=== PATIENT | female | born 1945 | race Caucasian/White ===

== ENCOUNTER → 2018-05-23 09:27 | Outpatient (CLI) | payer MEDICARE, SELFPAY ==
--- NOTE | 2018-05-23 09:32 | BI_ITS ---
MAMMOGRAPHY - BILATERAL SCREENING REASON FOR EXAM: Female, 72 years old. Routine annual screening examination. PERTINENT HISTORY: Aunt with breast cancer. TECHNIQUE: Digital bilateral breast philip (3D mammographic acquisition) in the CC and MLO projections. 2-D mediolateral oblique (MLO) and craniocaudad (CC) views of both breasts were obtained. CAD: Full Field Digital Mammography with Computer Added Detection was performed. COMPARISON: Comparison is made with prior study May 26, 2017 and April 06, 2016. FINDINGS: Breast Composition: The breasts are heterogeneously dense, which may obscure small masses. There are no dominant masses or suspicious calcifications. Stable small benign-appearing bilateral axillary lymph nodes. No other significant abnormalities are identified. There has been no significant change since the prior study. BI/SCREENING MAMM (CAD), BILAT IMPRESSION: Stable bilateral screening mammogram. Yearly follow-up mammogram recommended. (A) ASSESSMENT CATEGORY: BIRADS Category 2: Benign. A letter regarding these results will be sent to the patient by the facility within 30 days. Approximately 10% of breast cancers are not detected by mammography. A normal mammogram should not delay biopsy of a clinically suspicious abnormality. [id number] Electronically Signed: Curtis Keenan MD at 10:47 EST Tel [phone], Service support ,
[2018-05-23 14:42] LABS: Anion Gap 9 (5-15); BUN 16 mg/dL (7-18); BUN/Creat Ratio 19.3 RATIO (10-20); Calcium,Total 9.5 mg/dL (8.5-10.1); Chloride 105 mmol/L (98-107); Cholesterol 148 mg/dL (200); Creatinine, Serum 0.83 mg/dL (0.55-1.02); EST Glomerular Filtration Rate 72 mL/min (>60); Est Glom Filt Rate - Afr Amer 87 mL/min (>60); Glucose 90 mg/dL (74-106); High Density Lipoprotein 66 mg/dL; Potassium 3.5 mmol/L (3.5-5.1); Sodium Level 144 mmol/L (136-145); Thyroid Stim Hormone (TSH) 0.38 uIU/mL (0.358-3.74); Triglycerides 109 mg/dL; Very Low Density Lipoprotein 22 mg/dL (5-40)
--- OUTSIDE RECORDS SUMMARY | 2018-07-09 08:39 | XMS RPT_ITS | Clinical Summary ---
:1945 Author Organization [facility], [facility] Address [address] [place] [id number] Phone Care Team Providers Name Role Phone Amparo SAVAGE, Nichole Angelo Unavailable Conditions or Problems Problem Name Problem Onset Status Entry Provider Comment Standard Annotate Code Date Date Description Influenza [id number] Active Nichole Angelo Medication vaccination (SNOMED CT) / Amparo SAVAGE given given Medications No information available. Medications Administered No information available. Allergies, Adverse Reactions, Alerts No information available. Results No information available. Plan of Care Type Date Detail Appointment 09:00 AM [facility], [address], [place], [address], Procedures Code Procedure Name Date Entry Date [id number]-33760 Fluad Intramuscular Suspension Prefilled Syringe 0.5 ML Vital Signs Date Name Value Unit Description Body Temperature 98.2 [degF] temperature E&M
--- OUTSIDE RECORDS SUMMARY | 2018-07-09 08:39 | XMS RPT_ITS ---
:1945 Author Organization [facility] Care Team Providers Name Role Phone EYAL TOBAR (OD) Attending Unavailable MEET JAVED II Attending Unavailable JONI CEDENO Attending Unavailable EYAL TOBAR (OD) Referring Unavailable JONI CEDENO Attending Unavailable EYAL TOBAR (OD) Referring Unavailable Edvin Leach Attending Unavailable Edvin Leach Primary Care Unavailable Edvin Leach Referring Unavailable PROBLEMS PROBLEMS DATE TYPE CONDITION / CODE ATTENDING STATUS SOURCE 05/23/2018 Unknown Z12.31 - Edvin Leach Active [place] Encounter for [facility] mammogram for Repository malignant neoplasm of breast / Z12.31(ICD-10) PROCEDURES PROCEDURES No Procedure Records FoundRESULTS RESULTS PROGRESS Observed: 06/21/2018 Status: COMPLETED Source: [place] 4:17 PM [facility] REPOSITORY HNO ID: [id number] Author: Eyal Tobar Service: (none) Author Type: LAST PUTTER AWAY Type: Progress Notes Filed: 06/21/2018 4:18 PM Note Text: ASSESSMENT/PLAN: 1. Posterior vitreous detachment of both eyes - ICD9: 379.21, ICD10: H43.813 (primary diagnosis) Please call the office ([phone]) immediately if you notice more flashes of light, a sudden increase in floaters, or a sudden change in vision. 2. Vitreous floaters of both eyes - ICD9: 379.24, ICD10: H43.393 Patient was given both written and verbal information on flashes and floaters. Patient was instructed to call the office immediately upon noticing flashes of light, increase in floaters, or changes in vision. 3. Dry eye syndrome of both eyes - ICD9: 375.15, ICD10: H04.123 Refresh Optive Artificial tears, 1 drop, three times a day, Both eyes. 4. Combined form of age-related cataract, both eyes - ICD9: 366.19, ICD10: H25.813 Not visually significant / Observe Eyal Davionyun, OD I have confirmed and edited as necessary the relevant ophthalmic history, review of systems, surgical history, and ophthalmological examination findings as obtained by the ophthalmic technical staff. I have seen and examined Melyssa Beaulieu. I have discussed the examination findings, diagnosis, and treatment options with Melyssa Beaulieu and/or her family. I have also reviewed and agree with the assessment and plan as stated above and agree with all its relevant components. I gave the patient the opportunity to ask questions about the findings, diagnosis, and treatment options. BASIC METABOLIC Collected: 05/23/2018 Status: F Source: [place] PROFILE (BMP) 12:42 PM [facility] REPOSITORY Order Comment: PT IS NOT FASTING TYPE CODE TESTS RESULT OUT OF RANGE REFERENCE UNITS LAB L501.0100 74-106 mg/dL Normal GLU 90 Result Comment: Please note revised GLUCOSE reference range effective 2017. LAB L501.1000 7-18 mg/dL Normal BUN 16 LAB L501.1100 0.55-1.02 mg/dL Normal CREAT,SERUM 0.83 Result Comment: The validity of the calculated GFR AND GFRAA in patients over 70 years has not been determined. Clinical correlation is essential. LAB L501.1110 >60 mL/min Normal EST GFR 72 Result Comment: Non- GFR Calc LAB L501.1115 >60 mL/min Normal EST GFR - AA 87 Result Comment: GFR Calc LAB L501.1300 10-20 RATIO Normal BUN/CRE 19.3 LAB L501.2200 8.5-10.1 mg/dL CA Normal 9.5 LAB L501.5300 136-145 mmol/L NA Normal 144 LAB L501.5600 3.5-5.1 mmol/L K Normal 3.5 LAB L501.5900 98-107 mmol/L CL Normal 105 LAB L501.6100 21.0-32.0 mmol/L Normal CO2 30.0 LAB L501.6200 5-15 Normal GAP 9 Performed By: #### L500.2500 #### [facility] [address] [place], [address] LIPID PROFILE Collected: 05/23/2018 Status: F Source: [place] 12:42 PM [facility] REPOSITORY Order Comment: PT IS NOT FASTING TYPE CODE TESTS RESULT OUT OF RANGE REFERENCE UNITS LAB L501.4900 200 mg/dL Normal CHOL 148 Result Comment: <200 mg/dL Desirable 200-240 mg/dL Borderline >240 mg/dL High Risk LAB L501.5000 mg/dL Normal TRIG 109 Result Comment: The drugs N-Acetylcysteine and Metamizole may falsely depress this assay. Serum Triglycerides Reference Interval Normal <150 mg/dL Borderline high 150 - 199 mg/dL High 200 - 499 mg/dL Very High > or = 500 mg/dL LAB L501.6400 mg/dL Normal HDL 66 Result Comment: The drugs N-Acetylcysteine and Metamizole may falsely depress this assay. Reference Range HDL <40 mg/dL Low HDL Cholesterol HDL >or= 60 mg/dL High HDL Cholesterol LAB L501.6500 0-130 mg/dL Normal LDL 60 LAB L501.6600 5-40 mg/dL Normal VLDL 22 Performed By: #### L500.4100 #### [facility] [address] [place] [place], [address] THYROID STIM HORMONE Collected: 05/23/2018 Status: F Source: [place] (TSH) 12:42 PM [facility] REPOSITORY Order Comment: PT IS NOT FASTING TYPE CODE TESTS RESULT OUT OF RANGE REFERENCE UNITS LAB L501.9520 0.358-3.74 uIU/mL Normal TSH 0.38 Performed By: #### L501.9520 #### [facility] [address] [place], [address] VITAMIN D,25 HYDROXY Collected: 05/23/2018 Status: F Source: [place] 12:42 PM [facility] REPOSITORY TYPE CODE TESTS RESULT OUT OF RANGE REFERENCE UNITS LAB L506.1000 29.95-100.01 ng/mL Normal Vitamin D 31.0 25-OH Result Comment: Vitamin D 25(OH) Status Range Deficiency <20 ng/mL (50nmol/L) Insuffciency 20 - 30 ng/mL (50 - 75 nmol/L) Sufficiency 30 - 100 ng/mL (75 - 250 nmol/L) Toxicity >100 ng/mL (>250 nmol/L) Performed By: #### L506.1000 #### [facility] [address] [place], [address] SCREENING MAMM (CAD), Observed: 05/23/2018 Status: F Source: [place] BIL[place] 9:32 AM [facility] REPOSITORY [facility] Imaging Services [address] [place] [address] SCREENING MAMM (CAD), BILAT MR#: [id number] Acct: [id number] Name: MELYSSA BEAULIEU Rep #: [id number] : 1945 F 72 From: Curtis Keenan MD PCP: Edvin Leach MD Status: REG CLI Study: SCREENING MAMM (CAD), BILAT Date of Exam: 05/23/18 Exam# [id number] Ordering Dr: Edvin Leach MD MAMMOGRAPHY - BILATERAL SCREENING REASON FOR EXAM: Female, 72 years old. Routine annual screening examination. PERTINENT HISTORY: Aunt with breast cancer. TECHNIQUE: Digital bilateral breast philip (3D mammographic acquisition) in the CC and MLO projections. 2-D mediolateral oblique (MLO) and craniocaudad (CC) views of both breasts were obtained. CAD: Full Field Digital Mammography with Computer Added Detection was performed. COMPARISON: Comparison is made with prior study May 26, 2017 and April 06, 2016. FINDINGS: Breast Composition: The breasts are heterogeneously dense, which may obscure small masses. There are no dominant masses or suspicious calcifications. Stable small benign-appearing bilateral axillary lymph nodes. No other significant abnormalities are identified. There has been no significant change since the prior study. BI/SCREENING MAMM (CAD), BILAT IMPRESSION: Stable bilateral screening mammogram. Yearly follow-up mammogram recommended. (A) ASSESSMENT CATEGORY: BIRADS Category 2: Benign. A letter regarding these results will be sent to the patient by the facility within 30 days. Approximately 10% of breast cancers are not detected by mammography. A normal mammogram should not delay biopsy of a clinically suspicious abnormality. [id number] Electronically Signed: Curtis Keenan MD at 10:47 EST Tel [phone], Service support , CC: Edvin Leach MD Buggyman: Signed PROGRESS Observed: 12/27/2017 Status: COMPLETED Source: [place] 10:09 AM [facility] REPOSITORY HNO ID: [id number] Author: Meet Javed II Service: (none) Author Type: LAST PUTTER AWAY Type: Progress Notes Filed: 12/27/2017 10:11 AM Note Text: ASSESSMENT/PLAN: 1. Simple chronic conjunctivitis of both eyes - ICD9: 372.11, ICD10: H10.423 (primary diagnosis) Recommend use of Lumify 1 gt both eyes as needed for relief of redness. Continue use of moisture drops. 2. Combined form of age-related cataract, both eyes - ICD9: 366.19, ICD10: H25.813 Cataracts advancing slowly and causing myopic shift in glasses both eyes. 3. Regular astigmatism, bilateral - ICD9: 367.21, ICD10: H52.223 4. Presbyopia - ICD9: 367.4, ICD10: H52.4 Demonstrated shift in power to patient. Update glasses to maximize visual performance. I have confirmed and edited as necessary the relevant ophthalmic history, review of systems, surgical history, and ophthalmological examination findings as obtained by the ophthalmic technical staff. I have seen and examined Melyssa Beaulieu. I have discussed the examination findings, diagnosis, and treatment options with the patient and/or the patient's family. I have also reviewed and agree with the assessment and plan as stated above and agree with all its relevant components. I gave the patient the opportunity to ask questions about the findings, diagnosis, and treatment options. Meet Javed, II, OD PROGRESS Observed: 11/02/2017 Status: COMPLETED Source: [place] 2:18 PM [facility] REPOSITORY HNO ID: [id number] Author: Joni Cedeno Service: (none) Author Type: Physician Type: Progress Notes Filed: 11/02/2017 2:20 PM Note Text: ASSESSMENT/PLAN: 1. Combined form of age-related cataract, both eyes - ICD9: 366.19, ICD10: H25.813 (primary diagnosis) Cataracts are not visually significant Patient advised to see Dr. Meet Javed for updated refraction and glasses. 2. Posterior vitreous detachment of right eye - ICD9: 379.21, ICD10: H43.811 3. Vitreous floaters of both eyes - ICD9: 379.24, ICD10: H43.393 - OCT MACULA CIRRUS OU (BOTH EYES) Patient was instructed to call the office ([phone]) immediately upon noticing flashes of light, increase in floaters, or changes in vision. Stable / Observe 4. Hypothyroidism, unspecified type - ICD9: 244.9, ICD10: E03.9 Continue to monitor with primary care physician Joni Cedeno MD I have confirmed and edited as necessary the relevant ophthalmic history, review of systems, surgical history, and ophthalmological examination findings as obtained by the ophthalmic technical staff. I have seen and examined Melyssa Beaulieu. I have discussed the examination findings, diagnosis, and treatment options with Melyssa Beaulieu and/or her family. I have also reviewed and agree with the assessment and plan as stated above and agree with all its relevant components. I gave the patient the opportunity to ask questions about the findings, diagnosis, and treatment options. ALLERGIES ALLERGIES DATE TYPE / CODE NAME / CODE REACTION SEVERITY SOURCE Drug NO KNOWN [facility] Class/21686 ALLERGIES [place] 1003(SNOMED Repository CT) ENCOUNTERS ENCOUNTERS ADMIT/DISCHARGE ACCOUNT ADMITTING ENCOUNTER LOCATION SOURCE NUMBER CLASS 06/21/2018/06/23/19 [id number] Ambulatory [address] Repository 05/23/2018 [id number] Ambulatory [facility] ing:OPBI Repository 12/27/2017/12/29/19 [id number] Ambulatory [address] Repository 11/02/2017/11/04/19 [id number] Ambulatory [address] Repository 10/26/2017 [id number] Ambulatory [facility] Repository PAYERS PAYERS ENCOUNTER GUARANTOR PAYER SUBSCRIBER SOURCE 05/23/2018 MELYSSA C Primary MELYSSA C [place] CARVER Insurance:AETPOLINA GARCIAB: [facility] Number: [id number] Hospital [id number] Repository [address], Date:9022-82-11[address] [place] [address]Jlm: [id number] IMTIAZ HOANG [address]WP: [phone] 05/23/2018 Secondary NOT GIVENUNK [place] Insurance:SELF PAY [facility] Number: Effective Repository Date:2018-04-12
== END ==
PROVIDERS: Family Provider Family Medicine; PCP Family Medicine; Referring Provider Family Medicine; Visit Provider Family Medicine
DX: Z12.31 Encounter for screening mammogram for malignant neoplasm of breast (principal); E03.9 Hypothyroidism, unspecified; E78.00 Pure hypercholesterolemia, unspecified; M85.80 Other specified disorders of bone density and structure, unspecified site
CPT/HCPCS: 36415; 77063; 77067; 80048; 80061; 82306; 84443

== ENCOUNTER → 2019-05-21 10:00 | Outpatient (CLI) | payer MEDICARE, SELFPAY ==
[2019-05-21 12:18] LABS: Absolute Lymphocyte Count 1.39 X10^3/uL (0.83-4.51); Absolute Neutrophil Count 2.1 X10^3/uL (2.0-7.7); Basophil# 0.02 X10^3/uL; Basophil% 0.5 % (0-1); Eosinophil# 0.13 X10^3/uL; Eosinophils% 3.1 % (0-5); Hematocrit 41.8 % (37-47); Hemoglobin 13.5 g/dL (12.0-15.0); Lymphocyte # 1.39 X10^3/ul (4.0); Lymphocyte % 33.7 % (19-41); Mean Corp Hgb Conc 32.3 g/dL (32-36); Mean Corpuscular Hgb 31.5 pg (27.0-32.0); Mean Corpuscular Volume 97.4 fL (81-99); Mean Platelet Vol. 9.7 fl (6.2-12.0); Monocyte# 0.46 X10^3/uL; Monocyte% 11.1 % (0-10); NRBC Flagged by Analyzer 0 % (0-5); Neutrophil # 2.12 X10^3/uL (2.7-7.7); Neutrophil % 51.4 % (47-70); Platelet Count 230 K/mm3 (150-450); RBC Distribution Width CV 13.2 % (11.6-14.6); RBC Distribution Width SD 47.6 fl (35.1-43.9); Red Blood Count 4.29 M/mm3 (4.2-5.4); White Blood Count 4.1 K/mm3 (4.4-11.0)
[2019-05-21 12:41] LABS: ALB/GLOB Ratio 1.2 RATIO (0.9-2.4); AST(SGOT) 21 U/L (15-37); Alanine Aminotransfer ALT/SGPT 18 U/L (13-56); Alkaline Phosphatase 63 U/L (45-117); Anion Gap 2 (5-15); BUN 11 mg/dL (7-18); BUN/Creat Ratio 14.3 RATIO (10-20); Calcium,Total 9.3 mg/dL (8.5-10.1); Chloride 107 mmol/L (98-107); Cholesterol 160 mg/dL (200); Creatinine, Serum 0.77 mg/dL (0.55-1.02); EST Glomerular Filtration Rate 78 mL/min (>60); Est Glom Filt Rate - Afr Amer 94 mL/min (>60); Globulin 3.3 g/dL (2.2-4.2); Glucose 87 mg/dL (74-106); High Density Lipoprotein 67 mg/dL; Potassium 3.8 mmol/L (3.5-5.1); Protein, Total 7.3 g/dL (6.4-8.2); Sodium Level 141 mmol/L (136-145); Triglycerides 115 mg/dL; Very Low Density Lipoprotein 23 mg/dL (5-40)
[2019-05-21 12:48] LABS: Vitamin D,25 Hydroxy 34.9 ng/mL (29.95-100.01)
== END ==
PROVIDERS: Family Provider Family Medicine; PCP Family Medicine; Referring Provider Family Medicine; Visit Provider Family Medicine
DX: E78.00 Pure hypercholesterolemia, unspecified (principal)
CPT/HCPCS: 36415; 80053; 80061; 82306; 85025

== ENCOUNTER → 2020-05-20 11:26 | Outpatient (CLI) | payer MEDICARE, SELFPAY ==
[2020-05-20 16:18] LABS: Vitamin D,25 Hydroxy 33.4 ng/mL
[2020-05-20 16:54] LABS: ALB/GLOB Ratio 1.2 RATIO (0.9-2.4); AST(SGOT) 24 U/L (15-37); Alanine Aminotransfer ALT/SGPT 27 U/L (13-56); Albumin, Serum 4.1 g/dL (3.2-5.0); Alkaline Phosphatase 96 U/L (45-117); Anion Gap 6 (5-15); BUN 13 mg/dL (7-18); BUN/Creat Ratio 17.7 RATIO (10-20); Calcium,Total 9.4 mg/dL (8.5-10.1); Chloride 104 mmol/L (98-107); Cholesterol 146 mg/dL (200); Creatinine, Serum 0.73 mg/dL (0.55-1.02); EST Glomerular Filtration Rate 82 mL/min (>60); Est Glom Filt Rate - Afr Amer 99 mL/min (>60); Globulin 3.4 g/dL (2.2-4.2); Glucose 72 mg/dL (74-106); High Density Lipoprotein 64 mg/dL; Potassium 3.6 mmol/L (3.5-5.1); Protein, Total 7.5 g/dL (6.4-8.2); Sodium Level 139 mmol/L (136-145); Thyroid Stim Hormone (TSH) 0.13 uIU/mL (0.358-3.74); Triglycerides 110 mg/dL; Very Low Density Lipoprotein 22 mg/dL (5-40)
[2020-05-21 08:23] LABS: PTHIN 22.7 pg/mL (18.4-80.1)
== END ==
PROVIDERS: PCP Family Medicine; Referring Provider Family Medicine; Visit Provider Family Medicine
DX: E03.9 Hypothyroidism, unspecified (principal); E78.5 Hyperlipidemia, unspecified; M81.0 Age-related osteoporosis without current pathological fracture
CPT/HCPCS: 36415; 80053; 80061; 82306; 83970; 84443

== ENCOUNTER → 2020-05-27 11:47 | Outpatient (CLI) | payer MEDICARE, SELFPAY ==
[2020-05-27 15:49] LABS: T4 Free Direct 1.17 ng/dL (0.76-1.46); Thyroid Stim Hormone (TSH) 0.16 uIU/mL (0.358-3.74)
== END ==
PROVIDERS: PCP Family Medicine; Referring Provider Family Medicine; Visit Provider Family Medicine
DX: E03.9 Hypothyroidism, unspecified (principal)
CPT/HCPCS: 36415; 84439; 84443

== ENCOUNTER → 2020-08-07 13:24 | Outpatient (CLI) | payer MEDICARE, SELFPAY ==
--- NOTE | 2020-08-07 13:26 | BI_ITS ---
MAMMOGRAPHY - BILATERAL SCREENING REASON FOR EXAM: Female, 74 years old. Routine annual screening examination. PERTINENT HISTORY: Aunt with breast cancer. TECHNIQUE: Digital bilateral breast samantha (3D mammographic acquisition) in the CC and MLO projections. 2-D mediolateral oblique (MLO) and craniocaudad (CC) views of both breasts were obtained. CAD: Full Field Digital Mammography with Computer Added Detection was performed. COMPARISON: Comparison is made with prior study dated 05/23/2018 and 04/26/2017. FINDINGS: Breast Composition: The breasts are heterogeneously dense, which may obscure small masses. There are no dominant masses or suspicious calcifications. Stable benign-appearing small bilateral axillary lymph nodes. No other significant abnormalities are identified. There has been no significant change since the prior study. BI/SCRN MAMM (CAD)W/SAMANTHA BILAT IMPRESSION: Stable bilateral screening mammogram. Yearly follow-up mammogram recommended. (A) ASSESSMENT CATEGORY: BIRADS Category 2: Benign. A letter regarding these results will be sent to the patient by the facility within 30 days. Approximately 10% of breast cancers are not detected by mammography. A normal mammogram should not delay biopsy of a clinically suspicious abnormality. [id number] Electronically Signed: Curtis Keenan MD at 14:17 EST , Service support ,
--- NOTE | 2020-08-07 13:28 | BD_ITS ---
STUDY: DUAL ENERGY X-RAY ABSORPTIOMETRY / DXA REASON FOR EXAM: Female, 74 years old. CHEMICAL SPRAYER -- HX OF HRT -- TAKES SYNTHROID -- TAKES CALCIUM, MULTIVITAMIN, VITAMIN D -- TAKES PROLIA- BEEN ON x3 YRS -- DOES MODERATE AMOUNT OF EXERCISE -- FAMILY HX OF OSTEO- MOTHER -- NO VALENTE TECHNIQUE: Bone Mineral Density (BMD) measurements of lumbar spine and bilateral hips were obtained. COMPARISON: Comparison is made with prior study dated 06/28/2017. FINDINGS: Lumbar Spine (L1-L4): g/cm2 (1.088) / T-score (-0.9) / Z-score (0.8) Findings are suggestive of normal bone density with a low fracture risk. Left Femur Total: g/cm2 (0.922) / T-score (-0.7) / Z-score (1.1) Left Femoral Neck: g/cm2 (0.951) / T-score (-0.6) / Z-score (1.3) Right Femur Total: g/cm2 (0.892) / T-score (-0.9) / Z-score (0.8) Right Femoral Neck: g/cm2 (0.932) / T-score (-0.8) / Z-score (1.2) The T-Scores on the most recent prior examination were: Lumbar Spine (L1-L4): There has been improvement of bone density since the previous examination. Left Femur Total: which represents an improvement of 3.9%. Right Femur Total: which represents an improvement of 3.2%. BD/Dexa Bone Density Study IMPRESSION: The patient is considered normal as outlined below according to World Aniceto Organization (WHO) criteria with a low fracture risk. There has been improvement of bone density since the previous examination. Reference Information: The T-score is the number of standard deviations above or below the standard which is normal for young adults at their peak bone mineral density. The World Health Organization (WHO) interprets the T-scores as follows: Above -1 Normal bone density Between -1 and -2.5 Osteopenia Equal to / or below -2.5 Osteoporosis As a practical clinical guideline, osteopenia may be graded as follows: Mild -1 through -1.5 Moderate -1.6 through -2.0 Severe -2.1 through -2.4 The Z-score is the number of standard deviations above or below age-matched controls. A Z-score of less than -1.5 would be considered abnormal. References: 1. NIH Osteoporosis and Related Bone Diseases www osteo.org 2. International Society for Clinical Densitometry www iscd.org 3. National Osteoporosis Foundation www nof.org Electronically Signed: Curtis Keenan MD at 15:44 EST , Service support ,
== END ==
PROVIDERS: PCP Family Medicine; Referring Provider Nurse Practitioner Family; Visit Provider Nurse Practitioner Family
DX: Z12.31 Encounter for screening mammogram for malignant neoplasm of breast (principal); M85.80 Other specified disorders of bone density and structure, unspecified site; M81.0 Age-related osteoporosis without current pathological fracture
CPT/HCPCS: 77063; 77067; 77080

== ENCOUNTER → 2020-12-29 09:36 | Outpatient (CLI) | payer MEDICARE, SELFPAY ==
[2020-12-29 13:12] LABS: T4 Free Direct 1.07 ng/dL (0.76-1.46); Thyroid Stim Hormone (TSH) 0.61 uIU/mL (0.358-3.74)
== END ==
PROVIDERS: Nurse Practitioner Family; PCP Family Medicine; Referring Provider Family Medicine; Visit Provider Family Medicine
DX: E03.9 Hypothyroidism, unspecified (principal)
CPT/HCPCS: 36415; 84439; 84443

== ENCOUNTER 2021-07-29 08:04 | Outpatient (CLI) | payer MEDICARE, SELFPAY ==
[2021-07-29 10:31] LABS: Hematocrit 41.2 % (37-47); Hemoglobin 13.8 g/dL (12.0-15.0); Mean Corp Hgb Conc 33.5 g/dL (32-36); Mean Corpuscular Hgb 33.1 pg (27.0-32.0); Mean Corpuscular Volume 98.8 fL (81-99); Mean Platelet Vol. 9.7 fl (6.2-12.0); Platelet Count 226 K/mm3 (150-450); RBC Distribution Width CV 13.2 % (11.6-14.6); RBC Distribution Width SD 48.2 fl (35.1-43.9); Red Blood Count 4.17 M/mm3 (4.2-5.4); White Blood Count 4.1 K/mm3 (4.4-11.0)
[2021-07-29 10:45] LABS: Vitamin D,25 Hydroxy 38.5 ng/mL
[2021-07-29 10:57] LABS: ALB/GLOB Ratio 1.1 RATIO (0.9-2.4); AST(SGOT) 22 U/L (15-37); Alanine Aminotransfer ALT/SGPT 23 U/L (13-56); Alkaline Phosphatase 63 U/L (45-117); Anion Gap 5 (5-15); BUN 11 mg/dL (7-18); Calcium,Total 8.7 mg/dL (8.5-10.1); Chloride 107 mmol/L (98-107); Cholesterol 148 mg/dL (200); Creatinine, Serum 0.73 mg/dL (0.55-1.02); EST Glomerular Filtration Rate 82 mL/min (>60); Est Glom Filt Rate - Afr Amer 99 mL/min (>60); Globulin 3.5 g/dL (2.2-4.2); Glucose 88 mg/dL (74-106); High Density Lipoprotein 70 mg/dL; Potassium 3.7 mmol/L (3.5-5.1); Protein, Total 7.5 g/dL (6.4-8.2); Sodium Level 142 mmol/L (136-145); Thyroid Stim Hormone (TSH) 0.48 uIU/mL (0.358-3.74); Triglycerides 102 mg/dL; Very Low Density Lipoprotein 20 mg/dL (5-40)
== END 2021-07-29 23:59 | disposition home or self-care (01) ==
LOC: MTLAB 08:07
PROVIDERS: PCP Family Medicine; Referring Provider Registered Nurse; Visit Provider Registered Nurse
DX: E78.00 Pure hypercholesterolemia, unspecified (principal); E03.9 Hypothyroidism, unspecified; E55.9 Vitamin D deficiency, unspecified
CPT/HCPCS: 36415; 80053; 80061; 82306; 84443; 85027

== ENCOUNTER → 2022-06-22 | Outpatient (CLI) | payer MEDICARE, SELFPAY ==
--- NOTE | 2022-06-22 10:26 | BI_ITS ---
MAMMOGRAPHY - BILATERAL SCREENING REASON FOR EXAM: Female, 76 years old. Routine annual screening examination. PERTINENT HISTORY: Aunt with breast cancer. TECHNIQUE: Digital bilateral breast samantha (3D mammographic acquisition) in the CC and MLO projections. 2-D mediolateral oblique (MLO) and craniocaudad (CC) views of both breasts were obtained. CAD: Full Field Digital Mammography with Computer Added Detection was performed. COMPARISON: Comparison is made with prior study of 08/07/2020 and 05/23/2018. FINDINGS: Breast Composition: The breasts are heterogeneously dense, which may obscure small masses. There are no dominant masses or suspicious calcifications. No other significant abnormalities are identified. There has been no significant change since the prior study. BI/SCRN MAMM (CAD)W/SAMANTHA BILAT IMPRESSION: Stable bilateral screening mammogram. Yearly follow-up mammogram recommended. (A) ASSESSMENT CATEGORY: BIRADS Category 1: Negative. A letter regarding these results will be sent to the patient by the facility within 30 days. Approximately 10% of breast cancers are not detected by mammography. A normal mammogram should not delay biopsy of a clinically suspicious abnormality. [id number] Electronically Signed: Curtis Keenan MD at 12:52 EST ,
== END | disposition home or self-care (01) ==
LOC: OPBI 10:24
PROVIDERS: PCP Family Medicine; Visit Provider Family Medicine
DX: Z12.31 Encounter for screening mammogram for malignant neoplasm of breast (principal)
CPT/HCPCS: 77063; 77067

== ENCOUNTER → 2022-08-26 | Outpatient (CLI) | payer MEDICARE, SELFPAY ==
--- NOTE | 2022-08-26 12:28 | BD_ITS ---
STUDY: DUAL ENERGY X-RAY ABSORPTIOMETRY / DXA REASON FOR EXAM: Female, 76 years old. M810 TECHNIQUE: Bone Mineral Density (BMD) measurements of lumbar spine and bilateral hips were obtained. COMPARISON: Comparison is made with prior study August 07, 2020. FINDINGS: Lumbar Spine (L1-L4): g/cm2 (0.960) / T-score (-0.5) / Z-score (2.0) Findings are suggestive of normal bone density with a low fracture risk. Left Femur Total: g/cm2 (0.861) / T-score (-0.7) / Z-score (1.3) Left Femoral Neck: g/cm2 (0.809) / T-score (-0.4) / Z-score (1.8) Right Femur Total: g/cm2 (0.833) / T-score (-0.9) / Z-score (1.0) Right Femoral Neck: g/cm2 (0.689) / T-score (-1.4) / Z-score (0.8) The T-Scores on the most recent prior examination were: Lumbar Spine (L1-L4): There has been improvement of bone density since the previous examination. Left Femur Total: which represents an improvement of 0.2%. Right Femur Total: which represents an improvement of 0.4%. BD/Dexa Bone Density Study IMPRESSION: The patient is considered osteopenic as outlined below according to World Aniceto Organization (WHO) criteria with a low fracture risk. There has been improvement of bone density since the previous examination. Reference Information: The T-score is the number of standard deviations above or below the standard which is normal for young adults at their peak bone mineral density. The World Health Organization (WHO) interprets the T-scores as follows: Above -1 Normal bone density Between -1 and -2.5 Osteopenia Equal to / or below -2.5 Osteoporosis As a practical clinical guideline, osteopenia may be graded as follows: Mild -1 through -1.5 Moderate -1.6 through -2.0 Severe -2.1 through -2.4 The Z-score is the number of standard deviations above or below age-matched controls. A Z-score of less than -1.5 would be considered abnormal. References: 1. NIH Osteoporosis and Related Bone Diseases www osteo.org 2. International Society for Clinical Densitometry www iscd.org 3. National Osteoporosis Foundation www nof.org Electronically Signed: Curtis Keenan MD at 9:24 EDT ,
== END | disposition home or self-care (01) ==
LOC: OPBD 12:20
PROVIDERS: PCP Family Medicine; Referring Provider Nurse Practitioner Family; Visit Provider Nurse Practitioner Family
DX: M81.0 Age-related osteoporosis without current pathological fracture (principal)
CPT/HCPCS: 77080

== ENCOUNTER → 2023-07-27 | Outpatient (CLI) | payer MEDICARE, SELFPAY ==
--- OUTSIDE RECORDS SUMMARY | 2023-07-27 11:21 | XMS RPT_ITS | CCD ---
Author Name Unknown Address [address] [facility] [address] [place] [address] Organization [facility] Care Team Providers Care Refrigeration Mechanic Name Role Phone Amparo SAVAGE Nichole Petey Unavailable SANTANA CHRISTENSEN Attending Unavailable SELF, SELF Referring Unavailable SANDY LEACH Primary Care Unavailable SANTANA CHRISTENSEN Referring Unavailable SANDY LEACH Primary Care Unavailable Sandy Leach Unavailable Maribel Duran Dr. Eric A Primary Care Unavailable Maribel Duran Attending Maribel Thomas Attending Dr. Sandy Marie Primary Care Unavailable Sandy Leach MD Primary Care Provider [phone] Medications Current Medications Medication Drug Class(es) Dates Sig (Normalized) Sig (Original) carboxymethylcellulose 0.01 mg/mg ophthalmic gel (1 source) take 1 drop(s) into the eye(s) twice daily Refresh Dry Eye Therapy ophthalmic solution ; 1 drop(s) to each affected eye 2 times a day Quantity: 0 Refills: 0 Ordered: 17-Sep-2019 Vidya Escobar Status: Other Generic Substitution Allowed cefadroxil 500 mg oral capsule (1 source) Cephalosporin Antibacterial Start: End: 1 cefadroxil 500 mg oral capsule ; 2 cap(s) orally to start, then 1 capsule 2 times a day x 10 days - for bee sting infection Quantity: 21 Refills: 0 Ordered: 08-Jan-2021 Maribel Duran Start: 08-Jan-2021 End: 17-Jan-2021 Generic Substitution Allowed Comments: Finish all this medication unless otherwise directed by prescriber. Completed/Discontinued Medications Medication Drug Class(es) Dates Sig (Normalized) Sig (Original) calcium carbonate 1500 mg oral tablet (1 source) take 1 tablet by dileep th once daily calcium (as carbonate) 600 mg oral tablet ; 1 tab(s) orally once a day Quantity: 0 Refills: 0 Ordered: 17-Sep-2019 Vidya Escobar Status: Completed Generic Substitution Allowed CARBOXYMETHYLCELLULO S/GLYCERIN (REFRESH OPTIVE OPHTHALMIC) (1 source) take 1 drop(s) into the eye(s) once daily CARBOXYMETHYLCELLULOS/ GLYCERIN (REFRESH OPTIVE OPHTHALMIC) Use 1 Drop in both eyes once daily. 0 Active Problems Active Problems Problem Classification Problem Date Documented Date Episodic/Chronic Cataract (2 sources) Bilateral senile combined form cataracts of eyes; Translations: [Combined forms of age-related cataract, bilateral] Onset: 11-06-2014 01-07-2023 Chronic Inflammation; infection of eye (except that caused by tuberculosis or sexually transmitteddisease) (2 sources) Bilateral chronic conjunctivitis of eyes; Translations: [Simple chronic conjunctivitis, bilateral] Onset: 12-27-2017 12-27-2017 Chronic Other eye disorders (1 source) Bilateral vitreous floaters; Translations: [Other vitreous opacities, bilateral] Onset: 11-06-2014 12-28-2016 Chronic Other eye disorders (1 source) Bilateral posterior vitreous detachment; Translations: [Vitreous degeneration, bilateral] Onset: 06-28-2017 06-21-2018 Chronic Other eye disorders (1 source) Swelling around eyes; Translations: [Swelling or mass of eye] 01-08-2021 Episodic Other eye disorders (1 source) Subconjunctival hemorrhage of left eye; Translations: [Conjunctival hemorrhage, left eye] 01-07-2023 Episodic Other eye disorders (2 sources) Tear film insufficiency; Translations: [Dry eye syndrome of bilateral lacrimal glands] Onset: 12-28-2016 01-07-2023 Episodic Poisoning by nonmedicinal substances (3 sources) Insect sting; Translations: [Toxic effect of venom] 01-08-2021 Episodic Past or Other Problems Problem Classification Problem Date Documented Da te Episodic/Chronic Blindness and vision defects (2 sources) Bilateral regular astigmatism; Translations: [Regular astigmatism, bilateral] Onset: 02-08-2017 02-08-2017 Episodic Immunizations and screening for infectious disease (1 source) Encounter for immunization; Translations: [Encounter for immunization] Onset: 04-26-2017 04-26-2017 Episodic Other upper respiratory disease (1 source) Nasal congestion; Translations: [Nasal congestion] Onset: 10-10-2021 Episodic Other upper respiratory infections (2 sources) Acute pharyngitis, unspecified; Translations: [Acute pharyngitis, unspecified] Onset: 10-10-2021 Episodic Results Test Name Value Interpretation Reference Range Facil ity Vital Signs Date Time Vital Sign Value Performing Clinician Facility 01-08-2021 13:19-0400 Body height 172.7 cm Sandy Leach Other Phone: [facility] 01-08-2021 13:19-0400 Body temperature 97.16 [degF] Sandy Leach Other Phone: [facility] 01-08-2021 13:19-0400 Diastolic blood pressure 58 mm[Hg] Sandy Leach Other Phone: [facility] 01-08-2021 13:19-0400 Heart rate 57 /min Sandy Leach Other Phone: [facility] 01-08-2021 13:19-0400 Respiratory rate 16 /min Sandy Leach Other Phone: [facility] 01-08-2021 13:19-0400 SaO2% (BldA) [Mass fraction] 99 % Sandy Leach Other Phone: [facility] 01-08-2021 13:19-0400 Systolic blood pressure 107 mm[Hg] Sandy Leach Other Phone: [facility] 04-26-2017 11:35-0500 Body Temperature 98.2 [degF] Nichole Christensen LPN [facility] Work Phone: Encounters Encounter Date Encounter Type Care Provider Facility Start: 01-07-2023 End: 01-07-2023 Patient encounter procedure Karyn Lindsey OD Work Phone: Ophthalmology Procedures Date Procedure Procedure Detail Performing Clinician Start: 01-07-2023 Computerized ophthal [place] imaging retina Karyn Lee Rosalia OD Work Phone: Plan of Treatment Date Care Activity Detail Author Start: 02-11-2023 Influenza vaccination INFLUENZA (#1) [facility] Start: 06-13-2022 ADVANCE DIRECTIVE DISCUSSION ADVANCE DIRECTIVE DISCUSSION [facility] Start: 06-13-2022 DEPRESSION ASSESSMENT DEPRESSION ASS ESSMENT [facility] Start: 04-26-2017 End: 04-26-2017 Appointment Appointment [facility] Work Phone: Start: 2009 BONE DENSITY BONE DENSITY [facility] Start: 2009 PNEUMOCOCCAL: 65+ (1 - PCV) PNEUMOCOCCAL: 65+ (1 - PCV) [facility] Start: 1994 SHINGRIX VACCINE (1 of 2) SHINGRIX VACCINE (1 of 2) [facility] Start: 1989 DIABETES SCREEN DIABETES SCREEN [facility] Start: 12-23-1963 Urine microalbumin profile DTAP,TDAP,TD (1 - Tdap) [facility] Start: 1962 ANNUAL PCP TEAM QUILT STUFFER CECI DISEASE VISIT ANNUAL PCP TEAM CHRONIC DISEASE VISIT [facility] Start: 1962 HEPATITIS C SCREENING HEPATITIS C SC ADRIANA [facility] Immunizations Immunization Date Immunization Notes Care Provider So bolden 04-26-2017 Seasonal trivalent influenza vaccine, adjuvanted, preservative free Nichole Christensen LPN [facility] Work Phone: Payers Date Payer Category Payer Medicare AETNA MEDICARE A ETNA MEDICARE PPO [id number] 2021-Present [phone] [address] [place] [address] PPO [id number] 2020 Medicare [id number] 1945 Unknown [id number] 1945 Unknown [id number] 1945 Unknown [id number] 1945 Unknown [id number] Unknown AETNA\AETNA GOLD EVI AGUILAR Private Health Insurance [id number] Social History Date Type Detail Facility [facility] Tobacco smoking consumption unknown [facility] Start: 06-28-2017 Tobacco smoking status NHIS Never smoked tobacco [facility] Start: 06-28-2017 Tobacco use and exposure Smokeless tobacco non-user [facility] Start: 01-07-2023 Alcohol intake Current drinke r of alcohol (finding) [facility] Start: 02-04-2022 End: 01-07-2023 Alcohol intake [facility] Start: 02-04-2022 Tobacco use panel [facility] Start: 11-02-[address] [facility] Start: 1945 Sex Assigned At Not on file [facility] Instructions 01-07-2023 Patient Instructions Note Date & Type Note Facility 01-07-2023 Instructions Karyn Lindsey, OD - 01/07/2023 3:22 PM EDT 1. Subconjunctival hemorrhage of left eye - ICD9: 372.72, ICD10: H11.32 (primary diagnosis) Self limiting, if she continues to get the subconjunctival hemorrhages contact primary care physician 2. Combined form of age-related cataract, both eyes - ICD9: 366.19, ICD10: H25.813 Moderate cataract in both eyes. Well tolerated at this time. Discussed possible future affect on daily activities to watch for. Monitor as instructed. 3. Dry eye syndrome of both eyes - ICD9: 375.15, ICD10: H04.123 Continue Refresh tears as directed Follow up in one year/sooner if needed Karyn Lindsey, STEVE documented in this encounter [facility] History of Present illness Narrative 01-07-2023 Karyn Lindsey, OD - 01/07/2023 3:19 PM EDT Note Date & Type Note Facility 01-07-2023 History of Presen t illness Narrative ASSESSMENT/PLAN: 1. Subconjunctival hemorrhage of left eye - ICD9: 372.72, ICD10: H11.32 (primary diagnosis) Self limiting, if she continues to get the subconjunctival hemorrhages contact primary care physician 2. Combined form of age-related cataract, both eyes - ICD9: 366.19, ICD10: H25.813 Moderate cataract in both eyes. Well tolerated at this time. Discussed possible future affect on daily activities to watch for. Monitor as instructed. 3. Dry eye syndrome of both eyes - ICD9: 375.15, ICD10: H04.123 Continue Refresh tears as directed Follow up in one year/sooner if needed Karyn Lindsey OD I have confirmed and edited as necessary the relevant ophthalmic history, ROS, and the neuro exam findings as obtained by others. documented in this encounter [facility] Progress note 02-04-2022 Note Date & Type Note Facility 02-04-2022 Note HNO ID: [id number] Author: Farzad Lindsey II, OD Service: ? Author Type: RECRUITING INTERN Type: Progress Notes Filed: 02/04/2022 11:17 AM Note Text: Assessment and Plan H52.223 Regular astigmatism, bilateral (primary encounter diagnosis) H52.4 Presbyopia H52.11 Myopia of right eye H52.02 Hyperopia, left Comment: Change in glasses power yields limited improvement in visual acuity due to cataracts. Patient will tolerate old glasses and discussed cataract surgery with Dr. Bartholomew at next visit. I have confirmed and edited as necessary the relevant ophthalmic history, ROS, and the neuro exam findings as obtained by others. I have seen and examined Melyssa Briana Beaulieu. I have discussed the case and the management of this patient's care with the Resident/Fellow, if applicable. I also have reviewed and agree with the assessment and plan as stated above and agree with all of its relevant components. Farzad Lindsey II, OD [facility] Progress note 01-21-2022 Note Date & Type Note Facility 01-21-2022 Note HNO ID: [id number] Author: Fermin Bartholomew MD Service: ? Author Type: Physician Type: Progress Notes Filed: 01/21/2022 10:40 AM Note Text: Assessment and Plan 1. Punctate keratitis of both eyes -controlled with drops 2. Combined forms of age-related cataract of both eyes -increasing visual significance, still functional 3. Posterior vitreous detachment of both eyes -stable floaters Plan: -artificial tears three times a day both eyes -Dr. Lindsey for glasses -follow-up 1 year with dilated fundus exam, sooner as needed I have confirmed and edited as necessary the relevant ophthalmic history, ROS, and the neuro exam findings as obtained by others. I have seen and examined Melyssa Beaulieu. I have discussed the case and the management of this patient's care with the Resident/Fellow, if applicable. I also have reviewed and agree with the assessment and plan as stated above and agree with all of its relevant components. Fermin Bartholomew MD [facility] History of Past illness Narrative 07-11-2019 Note Date & Type Note Facility documented as of this encounter (statuses as of 01/07/2023) [facility] Evaluation note Note Date & Type Note Facility documented in this encounter [facility] Summary Purpose Family History No Family History Records FoundNo Family History Records FoundNo Family History Records Found Advance Directives No Advanced Directives Records FoundNo Advanced Directives Records FoundNo Advanced Directives Records Found Additional Source Comments INFORMATION SOURCE (unrecogn ized section and content) DATE CREATED AUTHOR AUTHOR'S ORGANIZ ATION 02/06/2022 [facility] DATE CREATED AUTHOR AUTHOR'S ORGANIZ ATION 06/12/2022 [facility] <item> Privacy Markings (unrecogniz ed section and content) Section Author: Veronika Farrell PROHIBITION ON REDISCLOSURE OF CONFIDENTIAL INFORMATION This notice accompanies a disclosure of information concerning a client made to you with the consent of such client. Source Comments (unrecognize d section and content) In the event this informatio n is protected by the Federal Confidentiality of Alcohol and Drug Abuse Patient Records regulations: The Federal rules restrict any use of the information to criminally investigate or prosecute any alcohol or drug abuse patient.[facility] Reason for Visit (unrecogniz ed section and content) Care Teams (unrecognized sec tion and content) FOR RECORDS PERTAINING TO PATIENTS WHO ARE OR HAVE BEEN ENROLLED IN A CHEMICAL DEPENDENCY/SUBSTANCEABUSE PROGRAM, SOME INFORMATION MAY BE OMITTED. This clinical summary was aggregated from multiple sources. Caution should be exercised in using it in the provision of clinical care. This summary normalizes information from multiple sources, and as a consequence, information in this document may materially change the coding, format and clinical context of patient data. In addition, data may be omitted in some cases. CLINICAL DECISIONS SHOULD BE BASED ON THE PRIMARY CLINICAL RECORDS. [employer] [facility]. provides no warranty or guarantee of the accuracy or completeness of information in this document.
[2023-07-27 12:30] LABS: Hematocrit 41.3 % (37-47); Hemoglobin 13.6 g/dL (12.0-15.0); Mean Corp Hgb Conc 32.9 g/dL (32-36); Mean Corpuscular Hgb 32.9 pg (27.0-32.0); Mean Corpuscular Volume 99.8 fL (81-99); Mean Platelet Vol. 9.4 fl (6.2-12.0); Platelet Count 226 K/mm3 (150-450); RBC Distribution Width CV 13.7 % (11.6-14.6); RBC Distribution Width SD 50.3 fl (35.1-43.9); Red Blood Count 4.14 M/mm3 (4.2-5.4); White Blood Count 4.3 K/mm3 (4.4-11.0)
[2023-07-27 13:06] LABS: ALB/GLOB Ratio 1.1 RATIO (0.9-2.4); AST(SGOT) 20 U/L (15-37); Alanine Aminotransfer ALT/SGPT 19 U/L (13-56); Albumin, Serum 3.9 g/dL (3.2-5.0); Alkaline Phosphatase 65 U/L (45-117); Anion Gap 5 (5-15); BUN 15 mg/dL (7-18); BUN/Creat Ratio 16.9 RATIO (10-20); Calcium,Total 9.3 mg/dL (8.5-10.1); Chloride 108 mmol/L (98-107); Creatinine, Serum 0.89 mg/dL (0.55-1.02); EST Glomerular Filtration Rate 65 mL/min (>60); Est Glom Filt Rate - Afr Amer 79 mL/min (>60); Globulin 3.5 g/dL (2.2-4.2); Glucose 72 mg/dL (74-106); Protein, Total 7.4 g/dL (6.4-8.2); Sodium Level 143 mmol/L (136-145); T4 Free Direct 1.06 ng/dL (0.76-1.46); Thyroid Stim Hormone (TSH) 1.88 uIU/mL (0.358-3.74)
[2023-07-30 15:07] LABS: Vitamin D 1,25-Dihydroxy 46.6 pg/mL (24.8-81.5)
== END | disposition home or self-care (01) ==
LOC: MFPLAB 10:35
PROVIDERS: Nurse Practitioner Family; PCP Family Medicine; Visit Provider Family Medicine
DX: E03.9 Hypothyroidism, unspecified (principal); E55.9 Vitamin D deficiency, unspecified
CPT/HCPCS: 36415; 80053; 82652; 84439; 84443; 85027

== ENCOUNTER → 2024-09-04 | Outpatient (CLI) | payer MEDICARE, SELFPAY ==
--- NOTE | 2024-09-04 10:32 | BI_ITS ---
EXAM: PROCEDURE: MA Mammogram Digital Screen CLINICAL HISTORY: Screening COMPARISON: Mammogram studies dated 06/22/2022 TECHNIQUE: A bilateral screening mammogram was obtained with MLO and CC views of both breasts with digital breast tomosynthesis. BREAST CANCER RISK ASSESSMENT: Does not appear to have been calculated. FINDINGS: No suspicious masses, suspicious calcifications or other suspicious mammogram findings are seen in either breast. Benign round microcalcifications are seen in both breasts. Partially obscured stable isodense masses are seen in both breasts. CONCLUSION: Right Breast: BI-RADS category 2, benign findings Left Breast: BI-RADS category 2, benign findings Breast Composition: There are scattered areas of fibroglandular density. Recommendation: Annual screening mammography Thank you for referring your patient to the [facility], if you have any questions, please call us at the performing site listed at the top of the report. [facility] [phone], [facility] , [facility] and [facility] . Reading Location: [id number]
--- NOTE | 2024-09-04 10:36 | BD_ITS ---
EXAM: DEXA BONE DENSITY STUDY 09/04/2024 REASON FOR EXAM: F,78 y/o patient is postmenopausal. She is being treated for osteoporosis. TECHNIQUE: DXA scan of the lumbar spine and total body less head, using make and model. REFERENCE LINKS: ISCD Pediatric Positions ISCD Adult Positions COMPARISON: DEXA examination dated 08/26/2022 FINDINGS: BMD and Z-SCORES DEXA examination of lumbar spine shows a bone mineral density measured 0.888 grams/centimeter squared for T-score measures -1.2 and Z-score measures 1.4. There has been a significant decrease in the bone mineral density of the lumbar spine by 7.5% since the prior study dated 08/26/2022. DEXA examination of the left femoral neck shows a bone mineral density measured 0.742 grams/centimeter squared. T-score measures -1.0 and Z-score measures 1.3. Total bone mineral density of the left hip measures 0.790 grams/centimeter squared. T-score measures -1.2 and Z-score measures 0.8. DEXA examination of the right femoral neck shows a bone mineral density measured 0.681 grams/centimeter squared. T-score measures -1.5 and Z-score measures 0.8. Total bone mineral density of the right hip measures 0.762 grams/centimeter squared. T-score measures -1.5 and Z-score measures 0.6. Fracture Risk Calculation: FRAX (10-year Fracture Risk) Score: 10 year fracture risk index for major BD/Dexa Bone Density Study IMPRESSION: Patient demonstrates osteopenia of the lumbar spine and both hips. Recommend follow-up, if clinically warranted. Reading Location: [id number]
== END | disposition home or self-care (01) ==
LOC: OPBD 10:31
PROVIDERS: PCP Family Medicine
DX: Z12.31 Encounter for screening mammogram for malignant neoplasm of breast (principal); Z78.0 Asymptomatic menopausal state; Z13.820 Encounter for screening for osteoporosis
CPT/HCPCS: 77063; 77067; 77080

== ENCOUNTER → 2024-09-04 | Outpatient (CLI) | payer MEDICARE, SELFPAY ==
[2024-09-04 17:01] LABS: PTHIN 31 pg/mL (11-61)
[2024-09-04 21:54] LABS: ALB/GLOB Ratio 1.6 RATIO (0.9-2.4); AST(SGOT) 26 U/L (<=31); Alanine Aminotransfer ALT/SGPT 13 U/L (<=34); Albumin, Serum 4.5 g/dL (3.4-4.8); Alkaline Phosphatase 113 U/L (35-104); Anion Gap 12 (5-15); BUN 13 mg/dL (4-19); BUN/Creat Ratio 17.3 RATIO (10-20); Calcium,Total 9.9 mg/dL (7.6-11.0); Carbon Dioxide 26.5 mmol/L (21.0-32.0); Chloride 104 mmol/L (98-108); Cholesterol 151 mg/dL (<=200); Creatinine, Serum 0.75 mg/dL (0.70-1.20); EST Glomerular Filtration Rate 81 (>60); Globulin 2.8 g/dL (2.2-4.2); Glucose 78 mg/dL (70-99); High Density Lipoprotein 72 mg/dL; Low Density Lipoprotein Calc. 64 mg/dL; Potassium 3.9 mmol/L (3.3-5.1); Protein, Total 7.3 g/dL (5.9-8.4); Sodium Level 142 mmol/L (133-145); Thyroid Stim Hormone (TSH) 0.586 uIU/mL (0.300-4.200); Total Bilirubin 0.82 mg/dL (0.00-1.30); Triglycerides 77 mg/dL; Very Low Density Lipoprotein 15 mg/dL (5-40)
== END | disposition home or self-care (01) ==
LOC: MFPLAB 10:09
PROVIDERS: PCP Family Medicine; Referring Provider Family Medicine; Visit Provider Family Medicine
DX: M81.0 Age-related osteoporosis without current pathological fracture (principal); E03.9 Hypothyroidism, unspecified; E78.00 Pure hypercholesterolemia, unspecified
CPT/HCPCS: 36415; 80053; 80061; 82306; 83970; 84443